=== PATIENT | female | born 1950 | race African-American/Black ===

== ENCOUNTER 2018-12-22 22:23 | Emergency (ER) | payer MEDICARE, MEDICAID ==
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
[2018-12-23 01:06] VITALS: BP 142/90
== END 2018-12-23 01:06 | disposition home or self-care (01) ==
LOC: ER 22:23
DX: S02.2XXA Fracture of nasal bones, initial encounter for closed fracture (principal); R04.0 Epistaxis; Y04.2XXA Assault by strike against or bumped into by another person, initial encounter
CPT/HCPCS: 70450; 72125; 99284